=== PATIENT | male | born 1955 | race Caucasian/White ===

== ENCOUNTER 2017-01-17 11:01 | Observation (INO) | payer OTHER ==
[~2017-01-17] VITALS: Ht 180.3 cm; Wt 70.2 kg
[~2017-01-17 11:01] MED LIST: AMOXICILLIN500 MG PO; AMOXIL500 MG OR; LORTAB 5 OR; NAPROSYN500 MG PO; UNKNOWN MEDS
[2017-01-17 11:57] LABS: HEMATOCRIT 39.3 % (39.0-50.0); HEMOGLOBIN 14.2 g/dl (14.0-18.0); IMMATURE GRANULOCYTES 0.3 % (0.0-1.0); MEAN CELL VOLUME 100.5 fL CALC (80.0-100.0); MEAN CORPUSCULAR HGB 36.3 pG CALC (26.0-32.0); MEAN CORPUSCULAR HGB CONC 36.1 g/L CALC (32.0-36.0); NEUT# 3.98 thou/uL (1.82-7.42); RED BLOOD COUNT 3.91 mill/uL (4.70-6.10); RED CELL DISTRI WIDTH 11.8 % (11.5-15.5)
[2017-01-17 12:12] LABS: ALKALINE PHOSPHATASE 60 u/l (38-126); ANION GAP 16 (6-22 (CALC)); BILIRUBIN, TOTAL 0.6 mg/dL (0.0-1.4); BUN 15 mg/dL (8-23); BUN/CREATININE RATIO 13 (12-20 (CALC)); CALCIUM 8.9 mg/dL (8.4-10.2); CARBON DIOXIDE 22 mmol/l (22-30); CHLORIDE 99 mmol/l (95-108); CREATININE 1.2 mg/dL (0.7-1.3); GFR > 60 ML/MIN (>=60 (CALC)); GFR FOR AFR.AMER. > 60 ML/MIN (>=60 (CALC)); GLUCOSE 116 mg/dL (82-115); POTASSIUM 2.8 mmol/l (3.5-5.1); SGOT/AST 38 u/l (19-48); SGPT/ALT 53 u/l (11-66); SODIUM 133 mmol/l (137-146); TOTAL PROTEIN 7.1 g/dL (6.3-8.2)
[2017-01-17 12:22] LABS: MYOGLOBIN 63 ng/mL (0 - 121)
[2017-01-17 14:05] LABS: URINE BILIRUBIN - DIPSTICK NEGATIVE (NEGATIVE); URINE CLARITY CLEAR; URINE COLOR YELLOW; URINE GLUCOSE - DIPSTICK NEGATIVE (NEGATIVE); URINE KETONE 15 mg/dL (NEGATIVE); URINE LEUK ESTERASE NEGATIVE (Negative); URINE NITRITE - DIPSTICK NEGATIVE (Negative); URINE PROTEIN - DIPSTICK 30 mg/dL (NEG-TRACE); URINE UROBILINOGEN - DIPSTICK 0.2 E.U./dL (0.2)
[2017-01-17 14:10] LABS: COCAINE NEGATIVE (NEGATIVE); TETRAHYDROCANNABIONOL POSITIVE (NEGATIVE); URINE BLOOD DIPSTICK NEGATIVE (NEGATIVE); URINE EPITHELIAL CELLS FEW EPI/hpf (0-FEW); URINE MUCUS MANY hpf (NONE-FEW); URINE WBC 0-2 WBC/hpf (0-5)
[2017-01-17 14:11] LABS: BARBITURATES NEGATIVE (NEGATIVE); METHADONE NEGATIVE (NEGATIVE); OXCYCODONE NEGATIVE (NEGATIVE); TRICYLIC ANTIDEPRESSANTS NEGATIVE (NEGATIVE)
[2017-01-17 16:01] VITALS: BP 95/64
[2017-01-17 20:22] VITALS: BP 98/64
[2017-01-17 22:16] LABS: ANION GAP 14 (6-22 (CALC)); BUN 15 mg/dL (8-23); BUN/CREATININE RATIO 17 (12-20 (CALC)); CALCIUM 8.4 mg/dL (8.4-10.2); CARBON DIOXIDE 18 mmol/l (22-30); CHLORIDE 104 mmol/l (95-108); CREATININE 0.9 mg/dL (0.7-1.3); GFR > 60 ML/MIN (>=60 (CALC)); GFR FOR AFR.AMER. > 60 ML/MIN (>=60 (CALC)); GLUCOSE 99 mg/dL (82-115); POTASSIUM 3.5 mmol/l (3.5-5.1); SODIUM 132 mmol/l (137-146)
[2017-01-17 23:20] VITALS: BP 106/68
[2017-01-18 04:00] VITALS: BP 116/75
[2017-01-18 05:22] LABS: HEMATOCRIT 36.5 % (39.0-50.0); HEMOGLOBIN 13.1 g/dl (14.0-18.0); IMMATURE GRANULOCYTES 0.2 % (0.0-1.0); MEAN CELL VOLUME 99.7 fL CALC (80.0-100.0); MEAN CORPUSCULAR HGB 35.8 pG CALC (26.0-32.0); MEAN CORPUSCULAR HGB CONC 35.9 g/L CALC (32.0-36.0); NEUT# 2.47 thou/uL (1.82-7.42); RED BLOOD COUNT 3.66 mill/uL (4.70-6.10); RED CELL DISTRI WIDTH 11.5 % (11.5-15.5)
[2017-01-18 05:40] LABS: ANION GAP 14 (6-22 (CALC)); BUN 12 mg/dL (8-23); BUN/CREATININE RATIO 16 (12-20 (CALC)); CALCIUM 8.9 mg/dL (8.4-10.2); CARBON DIOXIDE 19 mmol/l (22-30); CHLORIDE 106 mmol/l (95-108); CREATININE 0.7 mg/dL (0.7-1.3); GFR > 60 ML/MIN (>=60 (CALC)); GFR FOR AFR.AMER. > 60 ML/MIN (>=60 (CALC)); GLUCOSE 104 mg/dL (82-115); MAGNESIUM 2.1 mg/dL (1.6-2.3); POTASSIUM 3.5 mmol/l (3.5-5.1); SODIUM 135 mmol/l (137-146)
[2017-01-18 07:52] VITALS: BP 137/89
[2017-01-18 11:00] VITALS: BP 135/93
[2017-01-18] MEDS ORDERED: ASPIRIN ADULT L81 M2 PO (12:47)
[2017-01-18] MEDS ORDERED: FLUOXETINE20 MG PO (12:47)
[2017-01-18] MEDS ORDERED: COREG25 MG PO (12:47)
[2017-01-18] MEDS ORDERED: ATORVASTATIN CA80 MG PO (12:47)
[2017-01-18] MEDS ORDERED: LISINOPRIL20 MG PO (12:48)
[2017-01-18] MEDS ORDERED: METHOCARBAM500 MG PO (12:49)
[2017-01-18] MEDS ORDERED: PROTONIX40 M2 PO (12:49)
[2017-01-18] MEDS ORDERED: TRAMADOL HCL50 MG PO (12:50)
[2017-01-18 15:00] VITALS: BP 145/89
[2017-01-18 15:11] LABS: CHOLESTEROL HDL RATIO 2.7 (<4.4 (CALC))
[2017-01-18 18:55] VITALS: BP 174/68
[2017-01-18 23:25] VITALS: BP 105/62
[2017-01-19 04:00] VITALS: BP 125/87
[2017-01-19 05:32] LABS: HEMATOCRIT 35.1 % (39.0-50.0); HEMOGLOBIN 12.4 g/dl (14.0-18.0); IMMATURE GRANULOCYTES 0.2 % (0.0-1.0); MEAN CELL VOLUME 100.3 fL CALC (80.0-100.0); MEAN CORPUSCULAR HGB 35.4 pG CALC (26.0-32.0); MEAN CORPUSCULAR HGB CONC 35.3 g/L CALC (32.0-36.0); NEUT# 2.72 thou/uL (1.82-7.42); RED BLOOD COUNT 3.5 mill/uL (4.70-6.10); RED CELL DISTRI WIDTH 11.7 % (11.5-15.5)
[2017-01-19 05:43] LABS: ANION GAP 14 (6-22 (CALC)); BUN 5 mg/dL (8-23); BUN/CREATININE RATIO 8 (12-20 (CALC)); CALCIUM 8.5 mg/dL (8.4-10.2); CARBON DIOXIDE 21 mmol/l (22-30); CHLORIDE 106 mmol/l (95-108); CREATININE 0.7 mg/dL (0.7-1.3); GFR > 60 ML/MIN (>=60 (CALC)); GFR FOR AFR.AMER. > 60 ML/MIN (>=60 (CALC)); GLUCOSE 103 mg/dL (82-115); MAGNESIUM 1.6 mg/dL (1.6-2.3); POTASSIUM 3.6 mmol/l (3.5-5.1); SODIUM 136 mmol/l (137-146)
[2017-01-19 07:43] VITALS: BP 121/83
[2017-01-19 11:00] VITALS: BP 119/78
[2017-01-19] MEDS ORDERED: CIPROFLOXACN500 MG PO (12:50)
[2017-01-19] MEDS ORDERED: METRONIDAZOL500 MG PO (12:50)
[2017-01-19] MEDS ORDERED: FLORASTOR250 M1 PO (12:50)
== END 2017-01-19 13:40 | disposition home or self-care (01) | DRG 641 ==
LOC: ED 11:01 → ED-I 12:50 → ED 13:53 → MS2 13:54
PROVIDERS: Emergency Medicine; Nurse Practitioner Family; ADMIT Internal Medicine; ATTEND Internal Medicine
DX: E86.0 Dehydration (principal); I95.9 Hypotension, unspecified; E87.6 Hypokalemia; E83.42 Hypomagnesemia; R11.2 Nausea with vomiting, unspecified; F13.10 Sedative, hypnotic or anxiolytic abuse, uncomplicated; E78.5 Hyperlipidemia, unspecified; F32.9 Major depressive disorder, single episode, unspecified; M54.30 Sciatica, unspecified side; F17.210 Nicotine dependence, cigarettes, uncomplicated; F10.10 Alcohol abuse, uncomplicated; F12.10 Cannabis abuse, uncomplicated; R19.7 Diarrhea, unspecified; I25.10 Atherosclerotic heart disease of native coronary artery without angina pectoris; Z95.5 Presence of coronary angioplasty implant and graft; Z95.0 Presence of cardiac pacemaker
CPT/HCPCS: G0378

== ENCOUNTER 2017-03-11 12:57 | Observation (INO) | payer OTHER ==
[~2017-03-11] VITALS: Ht 180.3 cm; Wt 73.8 kg
[~2017-03-11 12:57] MED LIST changes: +ASPIRIN ADULT L81 M2 PO; +ATORVASTATIN CA80 MG PO; +CIPROFLOXACN500 MG PO; +COREG25 MG PO; +FLORASTOR250 M1 PO; +FLUOXETINE20 MG PO; +LISINOPRIL20 MG PO; +METHOCARBAM500 MG PO; +METRONIDAZOL500 MG PO; +PROTONIX40 M2 PO; +TRAMADOL HCL50 MG PO
[2017-03-11 13:48] LABS: HEMOGLOBIN 13.9 g/dl (14.0-18.0); IMMATURE GRANULOCYTES 0.4 % (0.0-1.0); MEAN CELL VOLUME 100.5 fL CALC (80.0-100.0); MEAN CORPUSCULAR HGB 35.8 pG CALC (26.0-32.0); MEAN CORPUSCULAR HGB CONC 35.6 g/L CALC (32.0-36.0); NEUT# 5.62 thou/uL (1.82-7.42); RED BLOOD COUNT 3.88 mill/uL (4.70-6.10); RED CELL DISTRI WIDTH 13.3 % (11.5-15.5)
[2017-03-11 13:50] LABS: INTERNATIONAL NORMALIZED RATIO 0.9 RATIO (0.7-1.3); PROTHROMBIN TIME 10.2 SECONDS (9.0-12.5)
[2017-03-11 13:55] LABS: ANION GAP 19 (6-22 (CALC)); BUN 8 mg/dL (8-23); BUN/CREATININE RATIO 15 (12-20 (CALC)); CALCIUM 8.5 mg/dL (8.4-10.2); CARBON DIOXIDE 23 mmol/l (22-30); CHLORIDE 102 mmol/l (95-108); CREATININE 0.5 mg/dL (0.7-1.3); GFR > 60 ML/MIN (>=60 (CALC)); GFR FOR AFR.AMER. > 60 ML/MIN (>=60 (CALC)); GLUCOSE 95 mg/dL (82-115); POTASSIUM 3.3 mmol/l (3.5-5.1); SODIUM 141 mmol/l (137-146)
[2017-03-11 16:43] VITALS: BP 141/87
[2017-03-11 19:23] VITALS: BP 146/89
[2017-03-11 22:02] LABS: COCAINE POSITIVE (NEGATIVE); METHADONE NEGATIVE (NEGATIVE); TETRAHYDROCANNABIONOL POSITIVE (NEGATIVE)
[2017-03-11 22:03] LABS: BARBITURATES NEGATIVE (NEGATIVE); OXCYCODONE NEGATIVE (NEGATIVE); TRICYLIC ANTIDEPRESSANTS NEGATIVE (NEGATIVE)
[2017-03-12 00:02] VITALS: BP 147/88
[2017-03-12 04:32] VITALS: BP 151/75
[2017-03-12 06:22] LABS: HEMATOCRIT 35.5 % (39.0-50.0); HEMOGLOBIN 12.3 g/dl (14.0-18.0); IMMATURE GRANULOCYTES 0.5 % (0.0-1.0); MEAN CORPUSCULAR HGB 35.3 pG CALC (26.0-32.0); MEAN CORPUSCULAR HGB CONC 34.6 g/L CALC (32.0-36.0); RED BLOOD COUNT 3.48 mill/uL (4.70-6.10); RED CELL DISTRI WIDTH 13.2 % (11.5-15.5)
[2017-03-12 06:35] LABS: ANION GAP 12 (6-22 (CALC)); BUN 9 mg/dL (8-23); BUN/CREATININE RATIO 16 (12-20 (CALC)); CALCIUM 8.3 mg/dL (8.4-10.2); CARBON DIOXIDE 30 mmol/l (22-30); CHLORIDE 101 mmol/l (95-108); CREATININE 0.5 mg/dL (0.7-1.3); GFR > 60 ML/MIN (>=60 (CALC)); GFR FOR AFR.AMER. > 60 ML/MIN (>=60 (CALC)); GLUCOSE 94 mg/dL (82-115); POTASSIUM 3.1 mmol/l (3.5-5.1); SODIUM 139 mmol/l (137-146)
[2017-03-12 08:42] VITALS: BP 160/90
[2017-03-12 09:26] VITALS: BP 160/90
== END 2017-03-12 12:15 | disposition home or self-care (01) | DRG 313 ==
LOC: ED 12:57 → ED-I 14:29 → ED 14:41 → MS2 14:42
PROVIDERS: Family Medicine; ADMIT Internal Medicine; ATTEND Internal Medicine
DX: R07.9 Chest pain, unspecified (principal); F14.10 Cocaine abuse, uncomplicated; F12.10 Cannabis abuse, uncomplicated; F11.10 Opioid abuse, uncomplicated; F13.10 Sedative, hypnotic or anxiolytic abuse, uncomplicated; F10.239 Alcohol dependence with withdrawal, unspecified; E78.5 Hyperlipidemia, unspecified; I10 Essential (primary) hypertension; F17.210 Nicotine dependence, cigarettes, uncomplicated; Z95.0 Presence of cardiac pacemaker
CPT/HCPCS: G0378; J2060

== ENCOUNTER 2017-12-05 17:56 | Emergency (ER) | payer OTHER ==
[~2017-12-05] VITALS: Ht 180.3 cm; Wt 68.0 kg
[2017-12-05 19:46] LABS: IMMATURE GRANULOCYTES 0.4 % (0.0-5.0); MEAN CELL VOLUME 102.1 fL CALC (80.0-100.0); MEAN CORPUSCULAR HGB 34.7 pG CALC (26.0-32.0); NEUT# 5.24 thou/uL (1.82-7.42); RED BLOOD COUNT 4.35 mill/uL (4.70-6.10); RED CELL DISTRI WIDTH 12.4 % (11.5-15.5)
[2017-12-05 19:50] LABS: HEMATOCRIT 44.4 % (39.0-50.0); HEMOGLOBIN 15.1 g/dl (14.0-18.0)
[2017-12-05 20:02] LABS: ALBUMIN 4.3 g/dL (3.2-5.0); ALKALINE PHOSPHATASE 81 u/l (38-126); ANION GAP 23 (6-22 (CALC)); BILIRUBIN, TOTAL 0.7 mg/dL (0.0-1.4); BUN 14 mg/dL (8-23); BUN/CREATININE RATIO 19 (12-20 (CALC)); CARBON DIOXIDE 21 mmol/l (22-30); CHLORIDE 105 mmol/l (95-108); CREATININE 0.7 mg/dL (0.7-1.3); GFR > 60 ML/MIN (>=60 (CALC)); GFR FOR AFR.AMER. > 60 ML/MIN (>=60 (CALC)); SGOT/AST 53 u/l (19-48); SGPT/ALT 41 u/l (11-66); SODIUM 145 mmol/l (137-146)
[2017-12-05 20:03] LABS: POTASSIUM 4.4 mmol/l (3.5-5.1)
[2017-12-05] MEDS ORDERED: NAPROSYN500 MG PO (21:54)
[2017-12-05] MEDS ORDERED: PREVACID30 M3 PO (21:54)
[2017-12-05 22:00] VITALS: BP 149/85
== END 2017-12-05 22:00 | disposition home or self-care (01) | DRG 206 ==
LOC: ED 17:56
PROVIDERS: Emergency Medicine
DX: S22.31XA Fracture of one rib, right side, initial encounter for closed fracture (principal); S80.211A Abrasion, right knee, initial encounter; F10.129 Alcohol abuse with intoxication, unspecified; M54.30 Sciatica, unspecified side; F17.210 Nicotine dependence, cigarettes, uncomplicated; W18.30XA Fall on same level, unspecified, initial encounter; Y93.89 Activity, other specified; Y92.410 Unspecified street and highway as the place of occurrence of the external cause

== ENCOUNTER 2018-12-31 13:03 | Emergency (ER) | payer OTHER ==
[~2018-12-31] VITALS: Ht 180.3 cm; Wt 60.0 kg
[~2018-12-31 13:03] MED LIST changes: +PREVACID30 M3 PO
[2018-12-31 13:56] LABS: IMMATURE GRANULOCYTES 0.3 % (0.0-5.0); MEAN CELL VOLUME 104.5 fL CALC (80.0-100.0); MEAN CORPUSCULAR HGB 34.6 pG CALC (26.0-32.0); MEAN CORPUSCULAR HGB CONC 33.2 g/L CALC (32.0-36.0); NEUT# 4.41 thou/uL (1.82-7.42); RED BLOOD COUNT 3.55 mill/uL (4.70-6.10); RED CELL DISTRI WIDTH 12.4 % (11.5-15.5)
[2018-12-31 14:02] LABS: HEMATOCRIT 37.1 % (39.0-50.0); HEMOGLOBIN 12.3 g/dl (14.0-18.0)
[2018-12-31 14:11] LABS: ALKALINE PHOSPHATASE 67 u/l (38-126); BILIRUBIN, TOTAL 0.6 mg/dL (0.0-1.4); BUN 13 mg/dL (8-23); BUN/CREATININE RATIO 12 (12-20 (CALC)); CARBON DIOXIDE 21 mmol/l (22-30); CHLORIDE 108 mmol/l (95-108); CREATININE 1.1 mg/dL (0.7-1.3); GFR > 60 ML/MIN (>=60 (CALC)); GFR FOR AFR.AMER. > 60 ML/MIN (>=60 (CALC)); SGOT/AST 85 u/l (19-48); SODIUM 141 mmol/l (137-146); TOTAL PROTEIN 6.2 g/dL (6.3-8.2)
[2018-12-31 14:13] LABS: ALBUMIN 3.3 g/dL (3.2-5.0); ANION GAP 15 (6-22 (CALC)); POTASSIUM 3.3 mmol/l (3.5-5.1)
[2018-12-31 14:28] LABS: URINE BLOOD DIPSTICK TRACE-INTACT (NEGATIVE); URINE GLUCOSE - DIPSTICK NEGATIVE (NEGATIVE); URINE KETONE NEGATIVE (NEGATIVE); URINE LEUK ESTERASE NEGATIVE (NEGATIVE); URINE NITRITE - DIPSTICK NEGATIVE (Negative); URINE PROTEIN - DIPSTICK 30 mg/dL (NEG-TRACE); URINE SPECIFIC GRAVITY >=1.030; URINE UROBILINOGEN - DIPSTICK 0.2 E.U./dL (0.2)
[2018-12-31 14:29] LABS: URINE BILIRUBIN - DIPSTICK NEGATIVE (NEGATIVE); URINE COLOR DK. YELLOW
[2018-12-31 14:32] LABS: BARBITURATES NEGATIVE (NEGATIVE); COCAINE NEGATIVE (NEGATIVE); METHADONE NEGATIVE (NEGATIVE); OXCYCODONE NEGATIVE (NEGATIVE); TETRAHYDROCANNABIONOL POSITIVE (NEGATIVE); TRICYLIC ANTIDEPRESSANTS NEGATIVE (NEGATIVE)
[2018-12-31 14:34] LABS: URINE SQUAMOUS EPITHELIAL CELL FEW EPI/hpf (0-FEW); URINE WBC 0-2 WBC/hpf (0-5)
[2018-12-31 17:05] VITALS: BP 92/65
== END 2018-12-31 17:05 | disposition short-term general hospital (02) | DRG 315 ==
LOC: ED 13:03
PROVIDERS: Emergency Medicine
DX: I95.9 Hypotension, unspecified (principal); R00.0 Tachycardia, unspecified; E87.2 Acidosis; C34.90 Malignant neoplasm of unspecified part of unspecified bronchus or lung; I48.91 Unspecified atrial fibrillation; F17.200 Nicotine dependence, unspecified, uncomplicated; Z95.0 Presence of cardiac pacemaker
CPT/HCPCS: J1650; Q9967

== ENCOUNTER 2019-04-08 15:28 | Emergency (ER) | payer OTHER ==
[~2019-04-08] VITALS: Ht 180.3 cm; Wt 72.7 kg
[2019-04-08 16:55] VITALS: BP 148/88
== END 2019-04-08 16:55 | disposition home or self-care (01) | DRG 563 ==
LOC: ED 15:28
PROC: 2W39X1Z Immobilization of Left Upper Extremity using Splint (ICD-10-PCS; principal; 2019-04-08)
DX: S52.022A Displaced fracture of olecranon process without intraarticular extension of left ulna, initial encounter for closed fracture (principal); F17.200 Nicotine dependence, unspecified, uncomplicated; W01.0XXA Fall on same level from slipping, tripping and stumbling without subsequent striking against object, initial encounter

== ENCOUNTER 2019-06-14 | Inpatient (IN) | payer OTHER ==
[2019-06-14] VITALS (7 sets, daily range): BP systolic 100–120; BP diastolic 54–86
--- NOTE | 2019-06-14 13:25 | NUR ---
PT TO ROOM VIA WC
[2019-06-14 14:06] LABS: HEMATOCRIT 37.7 % (39.0-50.0); IMMATURE GRANULOCYTES 0.5 % (0.0-5.0); MEAN CELL VOLUME 101.1 fL CALC (80.0-100.0); MEAN CORPUSCULAR HGB 34.9 pG CALC (26.0-32.0); MEAN CORPUSCULAR HGB CONC 34.5 g/L CALC (32.0-36.0); NEUT# 6.22 thou/uL (1.82-7.42); RED BLOOD COUNT 3.73 mill/uL (4.70-6.10); RED CELL DISTRI WIDTH 12.8 % (11.5-15.5)
--- NOTE | 2019-06-14 14:20 | NUR ---
PT RESTING ON STRETCHER; NO OBVIOUS S/S OF DISTRESS NOTED; VSS; CALL LIGHT WITHIN REACH; WILL CONTINUE TO MONITOR
[2019-06-14 14:39] LABS: PROTHROMBIN TIME 12.6 SECONDS (9.0-12.5)
--- NOTE | 2019-06-14 15:20 | NUR ---
PT ADVISED OF CONTINUED WAIT TIME; STATES BREATHING HAS IMPROVED; VSS; WILL CONTINUE TO MONITOR
[2019-06-14 15:38] LABS: INTERNATIONAL NORMALIZED RATIO 1.2 RATIO (0.7-1.3)
[2019-06-14 16:05] LABS: ALBUMIN 3.5 g/dL (3.2-5.0); ANION GAP 15 (6-22 (CALC)); BUN 15 mg/dL (8-23); BUN/CREATININE RATIO 23 (12-20 (CALC)); CARBON DIOXIDE 22 mmol/l (22-30); CHLORIDE 100 mmol/l (95-108); CREATININE 0.6 mg/dL (0.7-1.3); GFR > 60 ML/MIN (>=60 (CALC)); GFR FOR AFR.AMER. > 60 ML/MIN (>=60 (CALC)); POTASSIUM 3.9 mmol/l (3.5-5.1); SGOT/AST 45 u/l (19-48); SODIUM 134 mmol/l (137-146); TOTAL PROTEIN 6.7 g/dL (6.3-8.2)
[2019-06-14 16:06] LABS: ALKALINE PHOSPHATASE 109 u/l (38-126); BILIRUBIN, TOTAL 1.1 mg/dL (0.0-1.4)
--- NOTE | 2019-06-14 16:20 | NUR ---
DR FRAIRE AT BEDSIDE TO DISCUSS FINDINGS AND CONTINUED TESTING
--- NOTE | 2019-06-14 17:20 | NUR ---
PT UNABLE TO PROVIDE UA AT THIS TIME; UPON STANDING AT BEDSIDE TO USE URINAL PT HR INCREASED TO 160 AFIB; NOTIFIED AND ORDERS RECIEVED FOR CARDIZEM; PT MEDICATED PER JUN; WILL CONTINUE TO MONITOR
[2019-06-14 17:39] LABS: BARBITURATES NEGATIVE (NEGATIVE); COCAINE NEGATIVE (NEGATIVE); METHADONE NEGATIVE (NEGATIVE); OXCYCODONE NEGATIVE (NEGATIVE); TETRAHYDROCANNABIONOL POSITIVE (NEGATIVE); TRICYLIC ANTIDEPRESSANTS NEGATIVE (NEGATIVE)
[2019-06-14 17:56] LABS: URINE BILIRUBIN - DIPSTICK SMALL (NEGATIVE); URINE BLOOD DIPSTICK NEGATIVE (NEGATIVE); URINE COLOR YELLOW; URINE GLUCOSE - DIPSTICK 100 mg/dL (NEGATIVE); URINE KETONE 15 mg/dL (NEGATIVE); URINE LEUK ESTERASE NEGATIVE (NEGATIVE); URINE NITRITE - DIPSTICK POSITIVE (Negative); URINE PROTEIN - DIPSTICK TRACE mg/dL (NEG-TRACE); URINE SPECIFIC GRAVITY 1.025
[2019-06-14 18:04] LABS: URINE BACTERIA FEW hpf; URINE SQUAMOUS EPITHELIAL CELL FEW EPI/hpf (0-FEW)
--- NOTE | 2019-06-14 18:20 | NUR ---
PT RETURNED FROM CT AT THIS TIME; MONITORING DEVICES REAPPLIED; VSS; RHYTHM CONTINUES IN AFIB, RATE BETWEEN 90S-120S PERIODICALLY; B/P STABLE; PT ADVISED OF CONTINUED WAIT TIME; CALL LIGHT WITHIN REACH; WILL COTINUIE VICTOR M LEIGH
--- NOTE | 2019-06-14 18:44 | NUR ---
REPORT TO BRADLEY FUNES
--- NOTE | 2019-06-14 19:10 | NUR ---
CALLED ICU FOR REPORT, THOMAS REES IN WITH PT WILL CALL BACK.
--- NOTE | 2019-06-14 19:35 | NUR ---
REPORT GIVEN TO NEGRITA GUZMAN. WILL ATTEMPT 2ND IV PRIOR TO TAKING PT UP AND WILL START CARDIZEM.
--- NOTE | 2019-06-14 19:45 | NUR ---
IN WITH PT TO START CARDIZEM AND OBTAIN 2ND IV. PT HAS TREMORS B/L ARMS. ASKED PT IF THIS IS HIS NORMAL AND PT STATED YES. PT ATE 50% OF DINNER TRAY GIVEN.
--- NOTE | 2019-06-14 19:50 | NUR ---
Admission Note Report Given to: NEGRITA GUZMAN Transported by: Wheelchair X Stretcher Transported with: X Nurse Transporter X Patent IV O2 X Quantitative Strategy Analyst Location: X ICU [facility]
--- NOTE | 2019-06-14 19:54 | NUR ---
64 yr old white male admitted icu5 per stretcher from er. no resp diff. tremors noted. transferred self to bed. bed weight obtained. bus driver/monitor shows a fib pvcs hr 131. #20 rac ns began @ 125cchr as ordered, #20 rfa cardizem gtt infusing @ 5mghr ns infusing @ 20cchr. history obtained per pt & er record. oriented to room. fall precautions initiated.
--- NOTE | 2019-06-14 22:00 | NUR ---
eyes closed. no distress. cardiac cath lab technologist shows paced rhythm hr 70.
[2019-06-15] VITALS (13 sets, daily range): BP systolic 92–126; BP diastolic 61–96
--- NOTE | 2019-06-15 00:01 | NUR ---
eyes closed. no distress. quality assurance monitor final shows paced rhythm hr 78.
--- NOTE | 2019-06-15 02:00 | NUR ---
resting quietly. resps even & unlabored. no resp diff.
--- NOTE | 2019-06-15 04:00 | NUR ---
eyes closed. cardiac catheterization technologist shows paced rhythm hr 70.
--- NOTE | 2019-06-15 05:57 | NUR ---
no acute change in condition. radiographer cardiac catheterization shows paced rhythm hr 70.
--- NOTE | 2019-06-15 07:15 | NUR ---
REPORT RECEIVED FROM NIGHT NURSE. PT RESTING IN BED WITH EYES CLSED. NO DISTRESS NOTED. WILL CONTINUE TO MONITOR.
--- NOTE | 2019-06-15 07:50 | NUR ---
HAMMER HEATER VEST AT BEDSIDE TO ASSESS PT. NO DISTRESS NOTED. PT ON NC WITH PRODUCTIVE COUGH. PT DENIES ANY NEEDS AT THIS TIME. CARDIZEM GTT PUT ON HOLD. PT PACED AT 7O BPM. WILL CONTINUE TO MONITOR.
--- NOTE | 2019-06-15 08:00 | NUR ---
TREMORS NOTED ON PATIENTS BILATERAL UPPER EXTREMITIES. PT STATED THAT ITS NORMAL FOR HIM.
--- NOTE | 2019-06-15 10:45 | NUR ---
DR. MAR AT BEDSIDE TO ASSESS PT. NO DISTRESS NOTED. WILL CONTINUE TO MONITOR.
--- NOTE | 2019-06-15 12:00 | NUR ---
PT RESTING IN BED. NO DISTRESS NOTED. WILL CONTINUE TO MONITOR.
--- NOTE | 2019-06-15 12:50 | NUR ---
UNABLE TO PLACE PATIENT HOME MEDS DUE TO DISCHARGE ORDER ALREADY PLACED. DR. MAR REVIEWED HOME MEDS.
--- NOTE | 2019-06-15 13:18 | NUR ---
PT EDUCATED ON DISCHARGE ORDER. EDUCATED PT ON NEED FOR A PCP FOLLOW UP. TO ABSTAIN FROM DRINKING ALCOHOL. EDUCATED PT ON IMPORTANTS ON TAKING HOME MEDICATION. EDUCATED PT TO STOP TAKING PRADAXA ORDER BY . PT IN STABLE CONDITION. NO DISTRESS NOTED. PT DENIED ANY NEEDS AND VERBALIZED UNDERSTANDING OF DISCHARGE INSTRUCTIONS.
--- NOTE | 2019-06-15 13:46 | NUR ---
Discharge instructions given. Patient verbalizes understanding of same. Discharged in stable condition via Wheelchair to Home with family. All belongings sent with pt.
--- NOTE | 2019-06-18 15:59 | NUR ---
Spoke to patient regarding UTI symptoms. Patient remains asymptomatic, no antibiotic therapy warranted at this time.
== END 2019-06-15 13:30 | disposition home or self-care (01) | DRG 309 ==
PROVIDERS: Emergency Medicine; ADMIT Internal Medicine
DX: I48.91 Unspecified atrial fibrillation (principal); C34.92 Malignant neoplasm of unspecified part of left bronchus or lung; F10.129 Alcohol abuse with intoxication, unspecified; I10 Essential (primary) hypertension; E78.5 Hyperlipidemia, unspecified; J44.9 Chronic obstructive pulmonary disease, unspecified; F17.210 Nicotine dependence, cigarettes, uncomplicated; K21.9 Gastro-esophageal reflux disease without esophagitis; D69.59 Other secondary thrombocytopenia
CPT/HCPCS: J2060; Q9967